=== PATIENT | female | born 1940 | race Caucasian/White ===

== ENCOUNTER 2017-02-24 17:22 | Emergency (ER) | payer MEDICARE, OTHER ==
[~2017-02-24] VITALS: Ht 167.6 cm; Wt 61.2 kg
[~2017-02-24 17:22] MED LIST: AMIT50TA3; AMLO5CAP40 PO; ASPI81TA10; ATE50T PO; CALC500C3 PO; DIPH2.5T73 PO; ESOM40CA39 PO; FENO5TAB PO; FER325T PO; LEVO75TA50 PO; MAGN400T5; MORP100T22; MULT-683 OR; NITR-48 PO; ONDA4TAB5 PO; OXYC10TA44 PO; PANT40TA2 PO; POTA20TA53 PO; PROM25TA5; VITA400T4 PO; ZOLP5TAB5
[2017-02-24 19:44] LABS: Basophils # (auto) 0.1 uL; Basophils % (auto) 0.7 % (0.0-2.0); Eosinophils # (auto) 0.9 uL; Eosinophils % (auto) 6.9 % (0.0-7.0); Hematocrit 40.3 % (36.0-46.0); Hemoglobin 13.6 g/dL (12.2-16.2); Lymphocytes % (auto) 22.2 % (10.0-50.0); Mean Corpuscular Hemoglobin 32.8 pg (28.0-32.0); Mean Corpuscular Hgb Conc. 33.7 g/dL (32.0-36.0); Mean Corpuscular Volume 97.4 fL (80.0-100.0); Mean Platelet Volume 8.5 fL (6.9-10.8); Monocytes # (auto) 1.1 uL; Monocytes % (auto) 8.3 % (0.0-12.0); Neutrophils # (auto) 8.2 uL; Neutrophils % (auto) 61.9 % (37.0-80.0); Nucleated Red Blood Cells % 0.1 %; Platelet Count (auto) 385 10^3/uL (140-450); White Blood Cell 13.4 10^3/uL (4.4-10.8)
[2017-02-24 19:45] LABS: INR 1.02 (0.9-1.15); Partial Thromboplastin Time 30.3 sec (22.64-33.71); Prothrombin Time 11.1 sec (9.37-12.3)
[2017-02-24 19:53] LABS: BUN/Creatinine Ratio 18.8; Bilirubin, Total 0.4 mg/dL (0.2-1.0); Calcium 8.4 mg/dL (8.5-10.1); Potassium 3.8 mmol/L (3.5-5.1); Total Protein 7.8 g/dL (6.4-8.2)
[2017-02-24 20:41] LABS: Urine Bilirubin Negative (Negative); Urine Blood Negative /uL (Negative); Urine Color Yellow (Yellow); Urine Glucose Normal (Normal); Urine Hyaline Cast FEW /lpf (0 - 2); Urine Ketone Negative (Negative); Urine Mucus FEW (None Seen); Urine Nitrite POSITIVE (Negative); Urine RBC <1 /hpf (0 - 4); Urine Squamous Epithelial Cell FEW /hpf (<5); Urine Urobilinogen Normal (Negative); Urine pH 5.5 (5.0-8.0)
[2017-02-24 23:40] VITALS: BP 137/99
== END 2017-02-24 23:41 | disposition home or self-care (01) ==
LOC: EDBD 17:22 → ER 17:22
DX: R04.0 Epistaxis (principal); I11.0 Hypertensive heart disease with heart failure; I50.9 Heart failure, unspecified; E11.9 Type 2 diabetes mellitus without complications; E78.5 Hyperlipidemia, unspecified; I25.2 Old myocardial infarction; Z85.830 Personal history of malignant neoplasm of bone; Z79.899 Other long term (current) drug therapy
CPT/HCPCS: 36415; 80053; 81001; 85025; 85610; 85730; 93005

== ENCOUNTER 2017-06-03 16:45 | Inpatient (IN) | payer MEDICARE, OTHER ==
[~2017-06-03] VITALS: Ht 167.6 cm; Wt 57.7 kg
[~2017-06-03 16:45] MED LIST changes: -AMIT50TA3; +AMIT50TA3 PO; -ASPI81TA10; +ASPI81TA10 PO; -MAGN400T5; +MAGN400T5 PO; -ZOLP5TAB5; +ZOLP5TAB5 PO
[2017-06-03] MEDS ORDERED: ACETAMINOPHEN 325 MG TAB PO ONE ×3 (17:56→18:15)
[2017-06-03 18:26] LABS: Basophils # (auto) 0 uL; Basophils % (auto) 0.3 % (0.0-2.0); Eosinophils # (auto) 0 uL; Eosinophils % (auto) 0.6 % (0.0-7.0); Hematocrit 40.4 % (36.0-46.0); Hemoglobin 12.9 g/dL (12.2-16.2); Lymphocytes # (auto) 0.4 uL; Lymphocytes % (auto) 5.4 % (10.0-50.0); Mean Corpuscular Hemoglobin 31.4 pg (28.0-32.0); Mean Corpuscular Volume 98.3 fL (80.0-100.0); Monocytes # (auto) 0.7 uL; Monocytes % (auto) 9.5 % (0.0-12.0); Neutrophils # (auto) 5.9 uL; Neutrophils % (auto) 84.2 % (37.0-80.0); Nucleated Red Blood Cells % 0.2 %; Platelet Count (auto) 174 10^3/uL (140-450); Red Cell Distribution Width 14.9 % (11.8-14.3)
[2017-06-03 18:44] LABS: Albumin 2.9 g/dL (3.4-5.0); Calcium 7.7 mg/dL (8.5-10.1); Magnesium 1.7 mg/dL (1.6-2.6)
[2017-06-03 18:45] LABS: Lactic Acid w/Reflex 2.7 mmol/L (0.4-2.0)
[2017-06-03 18:46] LABS: Bilirubin, Total 0.4 mg/dL (0.2-1.0); Total Protein 7.4 g/dL (6.4-8.2)
[2017-06-03] MEDS ORDERED: SODIUM CHLORIDE 0.9% 1,000 ML IVB ONE (21:15)
[2017-06-03] MEDS ORDERED: ONDANSETRON HCL 4 MG/2 ML VIAL IV ONE (21:15)
[2017-06-03 21:36] LABS: Amylase 11 U/L (25-115); Lipase 48 U/L (73-393)
[2017-06-03] MEDS ORDERED: NITROGLYCERIN 0.4 MG SL TAB SL PRN (23:45)
[2017-06-03] MEDS ORDERED: MORPHINE SULFATE 4 MG/ML SYR/VIAL IV PRN (23:45)
[2017-06-03] MEDS ORDERED: AZITHROMYCIN 500MG/ 250ML 250 ML IV ONE (23:45)
[2017-06-04] VITALS (8 sets, daily range): BP systolic 80–137; BP diastolic 43–93
[2017-06-04 00:25] LABS: Cholesterol 102 mg/dL (< 200); HDL Cholesterol 26 mg/dL (40-59); LDL Cholesterol 60 mg/dL (< 100); Triglycerides 172 mg/dL (< 150)
[2017-06-04 04:11] LABS: Hematocrit 35.2 % (36.0-46.0); Hemoglobin 11.7 g/dL (12.2-16.2); Mean Corpuscular Hemoglobin 31.9 pg (28.0-32.0); Mean Corpuscular Hgb Conc. 33.3 g/dL (32.0-36.0); Mean Corpuscular Volume 95.8 fL (80.0-100.0); Platelet Count (auto) 133 10^3/uL (140-450); Red Blood Cells 3.68 10^6/uL (4.0-5.20); Red Cell Distribution Width 14.5 % (11.8-14.3); White Blood Cell 4.8 10^3/uL (4.4-10.8)
[2017-06-04 04:13] LABS: Band Neutrophils % (manual) 0; Basophils % (manual) 0 (0.0-2.0); Blast Cells 0; Eosinophils % (manual) 0 (0-7); Metamyelocytes % 0; Myelocytes % 0; Promyelocytes % 0; Reactive Lymphocytes 0
[2017-06-04 04:26] LABS: BUN/Creatinine Ratio 13.3; Calcium 7.2 mg/dL (8.5-10.1); Potassium 3.9 mmol/L (3.5-5.1)
[2017-06-04] MEDS ORDERED: FUROSEMIDE 20 MG/2 ML VIAL IV ONE (05:15)
[2017-06-04] MEDS: LEVOTHYROXINE SODIUM 25 MCG TAB PO SCH (06:14)
[2017-06-04 06:50] LABS: Lymphocytes % (manual) 14 (10.0-50.0); Monocytes % (manual) 17 (0-12)
[2017-06-04 07:22] LABS: Urine Bacteria MOD /hpf (None Seen); Urine Blood Negative /uL (Negative); Urine Mucus FEW (None Seen); Urine Specific Gravity 1.012 (1.001-1.035); Urine WBC 9 /hpf (0 - 5)
[2017-06-04] MEDS: IPRATROPIUM BROM 0.5 MG/2.5ML INH SOL NEB SCH ×3 (08:04→18:34)
[2017-06-04] MEDS: ALBUTEROL SULF 2.5 MG/0.5ML(0.5%) NEB SOLN NEB SCH ×3 (08:04→18:34)
[2017-06-04] MEDS: PANTOPRAZOLE 40 MG TAB PO SCH (08:35)
[2017-06-04] MEDS: ASPirin-EC 81 mg tab PO SCH (08:35)
[2017-06-04] MEDS: ACETAMINOPHEN 500 MG TAB PO PRN (08:36)
[2017-06-04] MEDS: PIPERACILLIN-TAZOB 3.375GM 50 ML IV SCH (18:51)
[2017-06-04] MEDS: ATORVASTATIN 20 MG TAB PO SCH (21:35)
[2017-06-04] MEDS: AMITRIPTYLINE HCL 25 MG TAB PO SCH (21:35)
[2017-06-04] MEDS ORDERED: AZITHROMYCIN 500MG/ 250ML 250 ML IV SCH (22:00)
[2017-06-05] MEDS: ALBUTEROL SULF 2.5 MG/0.5ML(0.5%) NEB SOLN NEB SCH ×3 (00:26→11:15)
[2017-06-05] MEDS: IPRATROPIUM BROM 0.5 MG/2.5ML INH SOL NEB SCH ×4 (00:26→21:01)
[2017-06-05] MEDS: ACETYLCYSTEINE 20%(200MG/ML) SOL 4ML NEB SCH ×2 (00:27→06:01)
[2017-06-05] MEDS: PIPERACILLIN-TAZOB 3.375GM 50 ML IV SCH ×4 (01:11→18:16)
[2017-06-05 05:00] VITALS: BP 126/60
[2017-06-05] MEDS: ONDANSETRON HCL 4 MG/2 ML VIAL IV PRN (05:15)
[2017-06-05] MEDS: LEVOTHYROXINE SODIUM 25 MCG TAB PO SCH (06:24)
[2017-06-05 09:00] VITALS: BP 106/52
[2017-06-05] MEDS ORDERED: cefTRIAXone 1GM/10ml IVPUSH 10 ML IV SCH (09:00)
[2017-06-05] MEDS: PANTOPRAZOLE 40 MG TAB PO SCH (10:47)
[2017-06-05] MEDS: ASPirin-EC 81 mg tab PO SCH (10:47)
[2017-06-05 13:00] VITALS: BP 125/48
[2017-06-05] MEDS: HYDROcodone-ACET 5/325MG TAB PO PRN (14:53)
[2017-06-05] MEDS ORDERED: ADENOSINE 6 MG/2 ML INJ IV ONE (17:15)
[2017-06-05 17:40] VITALS: BP 129/56
[2017-06-05] MEDS ORDERED: AMIODARONE HCL 900 MG in DEXTROSE 500 ML IV SCH (17:43)
[2017-06-05] MEDS ORDERED: AMIODARONE HCL 150 MG in D5W 5% 100 ML IV ONE (17:45)
[2017-06-05] MEDS ORDERED: SODIUM CHLORIDE 0.9% 1,000 ML IV ONE (17:45)
[2017-06-05] MEDS ORDERED: METOPROLOL TARTRATE 1MG/1ML-5ML VIAL IV ONE (18:00)
[2017-06-05] MEDS: SODIUM CHLORIDE 0.9% 1,000 ML IV SCH (18:37)
[2017-06-05 18:45] VITALS: BP 102/45
[2017-06-05] MEDS ORDERED: VANCOMYCIN PER PHARMACY 0 MG IV SCH (18:45)
[2017-06-05] MEDS ORDERED: VANCOMYCIN 1GM/250ML 250 ML IV ONE (18:45)
[2017-06-05 19:24] LABS: Basophils # (auto) 0 uL; Basophils % (auto) 0.4 % (0.0-2.0); Eosinophils # (auto) 0 uL; Hematocrit 40.7 % (36.0-46.0); Hemoglobin 13.4 g/dL (12.2-16.2); Lymphocytes # (auto) 1.1 uL; Lymphocytes % (auto) 28.3 % (10.0-50.0); Mean Corpuscular Hemoglobin 31.8 pg (28.0-32.0); Mean Corpuscular Volume 96.1 fL (80.0-100.0); Monocytes # (auto) 0.6 uL; Monocytes % (auto) 17.3 % (0.0-12.0); Nucleated Red Blood Cells % 0.1 %; Platelet Count (auto) 160 10^3/uL (140-450); Red Blood Cells 4.23 10^6/uL (4.0-5.20); Red Cell Distribution Width 14.7 % (11.8-14.3); White Blood Cell 3.7 10^3/uL (4.4-10.8)
[2017-06-05 19:42] LABS: INR 1.07 (0.9-1.15); Prothrombin Time 11.7 sec (9.37-12.3)
[2017-06-05 19:54] LABS: Albumin 2.7 g/dL (3.4-5.0); BUN/Creatinine Ratio 11.4; Bilirubin, Total 0.4 mg/dL (0.2-1.0); Calcium 7.5 mg/dL (8.5-10.1); Potassium 3.2 mmol/L (3.5-5.1); Total Protein 7.1 g/dL (6.4-8.2)
[2017-06-05] MEDS: VANCOMYCIN 1GM/250ML 250 ML IV SCH (20:32)
[2017-06-05] MEDS: APIXABAN 5 MG TAB PO SCH (20:45)
[2017-06-05] MEDS: AMITRIPTYLINE HCL 25 MG TAB PO SCH (20:45)
[2017-06-05] MEDS: TEMAZEPAM 15 MG CAP PO PRN (20:46)
[2017-06-05] MEDS: ATORVASTATIN 20 MG TAB PO SCH (20:46)
[2017-06-05 20:56] VITALS: BP 90/59
[2017-06-05] MEDS: AMIODARONE HCL 900 MG in DEXTROSE 500 ML IV SCH (23:43)
[2017-06-06] VITALS (7 sets, daily range): BP systolic 92–163; BP diastolic 49–73
[2017-06-06] MEDS: ACETYLCYSTEINE 20%(200MG/ML) SOL 4ML NEB SCH ×4 (00:20→18:40)
[2017-06-06] MEDS: IPRATROPIUM BROM 0.5 MG/2.5ML INH SOL NEB SCH ×4 (00:20→18:40)
[2017-06-06] MEDS: PIPERACILLIN-TAZOB 3.375GM 50 ML IV SCH ×4 (00:55→18:13)
[2017-06-06] MEDS: AMIODARONE HCL 900 MG in DEXTROSE 500 ML IV SCH (01:23)
[2017-06-06] MEDS: SODIUM CHLORIDE 0.9% 1,000 ML IV SCH ×3 (04:44→23:45)
[2017-06-06] MEDS: LEVOTHYROXINE SODIUM 25 MCG TAB PO SCH (04:48)
[2017-06-06 05:50] LABS: Hematocrit 40.5 % (36.0-46.0); Mean Corpuscular Hemoglobin 31.7 pg (28.0-32.0); Mean Corpuscular Hgb Conc. 32.1 g/dL (32.0-36.0); Mean Corpuscular Volume 98.8 fL (80.0-100.0); Platelet Count (auto) 123 10^3/uL (140-450); White Blood Cell 2.5 10^3/uL (4.4-10.8)
[2017-06-06 05:53] LABS: Basophils % (manual) 0 (0.0-2.0); Blast Cells 0; Eosinophils % (manual) 0 (0-7); Metamyelocytes % 0; Myelocytes % 0; Promyelocytes % 0; Reactive Lymphocytes 0
[2017-06-06 06:26] LABS: Albumin 2.5 g/dL (3.4-5.0); BUN/Creatinine Ratio 12.9; Bilirubin, Total 0.4 mg/dL (0.2-1.0); Calcium 7.3 mg/dL (8.5-10.1); Potassium 3.3 mmol/L (3.5-5.1); Total Protein 6.5 g/dL (6.4-8.2)
[2017-06-06 06:47] LABS: Band Neutrophils % (manual) 4; Lymphocytes % (manual) 30 (10.0-50.0); Monocytes % (manual) 18 (0-12)
[2017-06-06] MEDS: ASPirin-EC 81 mg tab PO SCH (11:26)
[2017-06-06] MEDS: APIXABAN 5 MG TAB PO SCH ×2 (11:27→22:00)
[2017-06-06] MEDS: PANTOPRAZOLE 40 MG TAB PO SCH (11:27)
[2017-06-06] MEDS ORDERED: POTASSIUM CHL 20 Meq TABLET PO ONE ×2 (12:00→16:00)
[2017-06-06] MEDS: ACETAMINOPHEN 500 MG TAB PO PRN (12:07)
[2017-06-06] MEDS: LOPERAMIDE HCL 2 MG CAP PO PRN (15:06)
[2017-06-06] MEDS ORDERED: AMIODARONE HCL 200 MG TAB PO ONE (18:00)
[2017-06-06] MEDS ORDERED: FUROSEMIDE 20 MG/2 ML VIAL IV ONE (18:00)
[2017-06-06] MEDS: HYDROcodone-ACET 5/325MG TAB PO PRN (18:30)
[2017-06-06] MEDS: VANCOMYCIN 1GM/250ML 250 ML IV SCH (21:00)
[2017-06-06] MEDS: AMITRIPTYLINE HCL 25 MG TAB PO SCH (22:00)
[2017-06-06] MEDS: ATORVASTATIN 20 MG TAB PO SCH (22:00)
[2017-06-07] VITALS (8 sets, daily range): BP systolic 120–162; BP diastolic 71–99
[2017-06-07] MEDS: ACETYLCYSTEINE 20%(200MG/ML) SOL 4ML NEB SCH ×4 (00:18→18:59)
[2017-06-07] MEDS: IPRATROPIUM BROM 0.5 MG/2.5ML INH SOL NEB SCH ×4 (00:18→18:58)
[2017-06-07] MEDS: MORPHINE SULFATE 4 MG/ML SYR/VIAL IV PRN ×2 (02:34→17:34)
[2017-06-07 05:44] LABS: Basophils # (auto) 0 uL; Basophils % (auto) 0.1 % (0.0-2.0); Eosinophils # (auto) 0 uL; Eosinophils % (auto) 0.4 % (0.0-7.0); Hematocrit 40.8 % (36.0-46.0); Hemoglobin 13.4 g/dL (12.2-16.2); Lymphocytes # (auto) 0.8 uL; Lymphocytes % (auto) 35.8 % (10.0-50.0); Mean Corpuscular Hemoglobin 31.9 pg (28.0-32.0); Mean Corpuscular Hgb Conc. 32.8 g/dL (32.0-36.0); Mean Corpuscular Volume 97.3 fL (80.0-100.0); Monocytes # (auto) 0.4 uL; Monocytes % (auto) 16.9 % (0.0-12.0); Neutrophils # (auto) 1.1 uL; Neutrophils % (auto) 46.8 % (37.0-80.0); Nucleated Red Blood Cells % 0.3 %; Platelet Count (auto) 115 10^3/uL (140-450); Red Blood Cells 4.19 10^6/uL (4.0-5.20); Red Cell Distribution Width 14.8 % (11.8-14.3); White Blood Cell 2.4 10^3/uL (4.4-10.8)
[2017-06-07] MEDS: PIPERACILLIN-TAZOB 3.375GM 50 ML IV SCH ×4 (05:54→17:34)
[2017-06-07 06:00] LABS: BUN/Creatinine Ratio 10.3; Calcium 7.8 mg/dL (8.5-10.1); Potassium 4.3 mmol/L (3.5-5.1)
[2017-06-07] MEDS: LEVOTHYROXINE SODIUM 25 MCG TAB PO SCH (06:55)
[2017-06-07] MEDS: HYDROcodone-ACET 5/325MG TAB PO PRN (07:54)
[2017-06-07] MEDS: SODIUM CHLORIDE 0.9% 1,000 ML IV SCH ×2 (09:45→23:00)
[2017-06-07] MEDS: APIXABAN 5 MG TAB PO SCH ×2 (10:00→21:44)
[2017-06-07] MEDS: ASPirin-EC 81 mg tab PO SCH (10:00)
[2017-06-07] MEDS: PANTOPRAZOLE 40 MG TAB PO SCH (10:00)
[2017-06-07] MEDS ORDERED: ALBUTEROL SULF 2.5 MG/0.5ML(0.5%) NEB SOLN NEB PRN (16:15)
[2017-06-07] MEDS ORDERED: MORPHINE SULF INJ 2 MG/ML SYRINGE 1ML ONE (17:24)
[2017-06-07] MEDS: methylPREDNISolone SOD SUCC 40 MG/ML VL IV SCH (17:33)
[2017-06-07] MEDS ORDERED: AMIODARONE HCL 200 MG TAB PO SCH (18:00)
[2017-06-07] MEDS: ALBUTEROL SULF 2.5 MG/0.5ML(0.5%) NEB SOLN NEB SCH (18:58)
[2017-06-07] MEDS: BUDESONIDE (INHALATION) 0.5 MG/2 ML NEB NEB SCH (18:58)
[2017-06-07] MEDS: AMITRIPTYLINE HCL 25 MG TAB PO SCH (21:43)
[2017-06-07] MEDS: ATORVASTATIN 20 MG TAB PO SCH (21:44)
[2017-06-07] MEDS: TEMAZEPAM 15 MG CAP PO PRN (21:45)
[2017-06-08] VITALS: BP 156/90
[2017-06-08] MEDS: PIPERACILLIN-TAZOB 3.375GM 50 ML IV SCH ×4 (00:14→17:45)
[2017-06-08] MEDS: methylPREDNISolone SOD SUCC 40 MG/ML VL IV SCH ×4 (00:14→17:39)
[2017-06-08] MEDS: NAFCILLIN SOD 1GM 1 GM in SODIUM CHL 0.9% 50 ML IV SCH ×4 (01:15→22:30)
[2017-06-08] MEDS: LORazepam 2MG/ML-1ML VIAL IV PRN (01:32)
[2017-06-08] MEDS ORDERED: AMIODARONE HCL (50 MG/ ML) 3 ML VIAL IV ONE (01:53)
[2017-06-08] MEDS ORDERED: AMIODARONE HCL 900 MG IV ONE (01:53)
[2017-06-08] MEDS ORDERED: AMIODARONE HCL 900 MG in DEXTROSE 500 ML IV SCH (02:15)
[2017-06-08] MEDS ORDERED: AMIODARONE HCL 150 MG in D5W 5% 100 ML IV ONE (02:15)
[2017-06-08] MEDS ORDERED: DIGOXIN (250MCG/ML) 2 ML AMPULE ONE (02:31)
[2017-06-08] MEDS ORDERED: SODIUM BICARBONATE 8.4 % INJ 50ML VIAL IV ONE ×2 (02:39→02:45)
[2017-06-08] MEDS ORDERED: FUROSEMIDE 20 MG/2 ML VIAL ONE (02:39)
[2017-06-08] MEDS ORDERED: FUROSEMIDE 20 MG/2 ML VIAL IV ONE (02:45)
[2017-06-08] MEDS ORDERED: DIGOXIN (250MCG/ML) 2 ML AMPULE IV ONE (02:45)
[2017-06-08] MEDS ORDERED: diphenhdrAMINE HCL 50 MG/1 ML VL ONE (02:52)
[2017-06-08] MEDS ORDERED: diphenhdrAMINE HCL 50 MG/1 ML VL IV ONE (03:00)
[2017-06-08 04:00] VITALS: BP 94/84
[2017-06-08] MEDS: LEVOTHYROXINE SODIUM 25 MCG TAB PO SCH (05:26)
[2017-06-08] MEDS: ALBUTEROL SULF 2.5 MG/0.5ML(0.5%) NEB SOLN NEB SCH ×4 (06:16→19:38)
[2017-06-08] MEDS: ACETYLCYSTEINE 20%(200MG/ML) SOL 4ML NEB SCH ×4 (06:16→19:38)
[2017-06-08] MEDS: IPRATROPIUM BROM 0.5 MG/2.5ML INH SOL NEB SCH ×4 (06:16→19:38)
[2017-06-08 06:54] LABS: Basophils # (auto) 0 uL; Eosinophils # (auto) 0 uL; Hemoglobin 13.9 g/dL (12.2-16.2); Lymphocytes # (auto) 0.3 uL; Monocytes # (auto) 0.1 uL; Neutrophils # (auto) 0.7 uL; Nucleated Red Blood Cells % 0.2 %; Red Cell Distribution Width 14.2 % (11.8-14.3)
[2017-06-08 06:59] LABS: Basophils % (auto) 0.3 % (0.0-2.0); Hematocrit 40.8 % (36.0-46.0); Lymphocytes % (auto) 24.4 % (10.0-50.0); Mean Corpuscular Hemoglobin 32.1 pg (28.0-32.0); Mean Corpuscular Volume 94.3 fL (80.0-100.0); Monocytes % (auto) 9.7 % (0.0-12.0); Neutrophils % (auto) 65.6 % (37.0-80.0); Platelet Count (auto) 114 10^3/uL (140-450); Red Blood Cells 4.33 10^6/uL (4.0-5.20)
[2017-06-08 07:05] LABS: White Blood Cell 1.1 10^3/uL (4.4-10.8)
[2017-06-08 07:17] LABS: BUN/Creatinine Ratio 10.6; Calcium 7.6 mg/dL (8.5-10.1); Potassium 3.3 mmol/L (3.5-5.1); Total Protein 7.8 g/dL (6.4-8.2)
[2017-06-08 07:54] LABS: Bilirubin, Total 0.5 mg/dL (0.2-1.0)
[2017-06-08] MEDS: AMIODARONE HCL 900 MG in DEXTROSE 500 ML IV SCH (08:15)
[2017-06-08] MEDS: BUDESONIDE (INHALATION) 0.5 MG/2 ML NEB NEB SCH ×2 (10:00→19:38)
[2017-06-08] MEDS: HYDROcodone-ACET 5/325MG TAB PO PRN (10:26)
[2017-06-08] MEDS: PANTOPRAZOLE 40 MG TAB PO SCH (10:27)
[2017-06-08] MEDS: APIXABAN 5 MG TAB PO SCH ×2 (10:27→22:00)
[2017-06-08] MEDS: ASPirin-EC 81 mg tab PO SCH (10:27)
[2017-06-08 11:53] VITALS: BP 92/65
[2017-06-08] MEDS ORDERED: MORPHINE SULF INJ 2 MG/ML SYRINGE 1ML IV PRN (13:45)
[2017-06-08 15:50] VITALS: BP 95/64
[2017-06-08] MEDS: MORPHINE SULF INJ 2 MG/ML SYRINGE 1ML IV PRN (17:40)
[2017-06-08 20:00] VITALS: BP 92/60
[2017-06-08] MEDS: AMITRIPTYLINE HCL 25 MG TAB PO SCH (22:00)
[2017-06-08] MEDS: ATORVASTATIN 20 MG TAB PO SCH (22:34)
[2017-06-09] VITALS (7 sets, daily range): BP systolic 93–160; BP diastolic 50–89
[2017-06-09] MEDS: HYDROcodone-ACET 5/325MG TAB PO PRN ×2 (00:09→10:50)
[2017-06-09] MEDS: methylPREDNISolone SOD SUCC 40 MG/ML VL IV SCH ×3 (00:10→12:00)
[2017-06-09] MEDS: TEMAZEPAM 15 MG CAP PO PRN ×2 (00:10→21:09)
[2017-06-09] MEDS: PIPERACILLIN-TAZOB 3.375GM 50 ML IV SCH ×4 (00:10→19:30)
[2017-06-09] MEDS: AMIODARONE HCL 900 MG in DEXTROSE 500 ML IV SCH (04:18)
[2017-06-09] MEDS: NAFCILLIN SOD 1GM 1 GM in SODIUM CHL 0.9% 50 ML IV SCH ×5 (06:10→22:15)
[2017-06-09] MEDS: LEVOTHYROXINE SODIUM 25 MCG TAB PO SCH (06:16)
[2017-06-09] MEDS: IPRATROPIUM BROM 0.5 MG/2.5ML INH SOL NEB SCH ×4 (06:33→18:38)
[2017-06-09] MEDS: ALBUTEROL SULF 2.5 MG/0.5ML(0.5%) NEB SOLN NEB SCH ×4 (06:33→18:38)
[2017-06-09] MEDS: ACETYLCYSTEINE 20%(200MG/ML) SOL 4ML NEB SCH ×4 (06:33→18:39)
[2017-06-09] MEDS: APIXABAN 5 MG TAB PO SCH ×2 (10:36→22:15)
[2017-06-09] MEDS: ASPirin-EC 81 mg tab PO SCH (10:36)
[2017-06-09] MEDS: PANTOPRAZOLE 40 MG TAB PO SCH (10:36)
[2017-06-09] MEDS: BUDESONIDE (INHALATION) 0.5 MG/2 ML NEB NEB SCH ×2 (10:37→21:20)
[2017-06-09] MEDS: FILGRASTIM 300 MCG INJ VIAL SC SCH (10:39)
[2017-06-09] MEDS ORDERED: SOTALOL HCL 80 MG TAB PO ONE (17:30)
[2017-06-09] MEDS: methylPREDNISolone SOD SUCC 125 MG/2 ML VL IV SCH (18:57)
[2017-06-09] MEDS: SODIUM CHLORIDE 0.9% 1,000 ML IV SCH ×3 (21:02→22:10)
[2017-06-09] MEDS: AMITRIPTYLINE HCL 25 MG TAB PO SCH (22:15)
[2017-06-09] MEDS: ATORVASTATIN 20 MG TAB PO SCH (22:15)
[2017-06-09] MEDS: SOTALOL HCL 80 MG TAB PO SCH (22:15)
[2017-06-09] MEDS ORDERED: methylPREDNISolone SOD SUCC 40 MG/ML VL ONE (23:37)
[2017-06-10] VITALS (8 sets, daily range): BP systolic 101–123; BP diastolic 59–77
[2017-06-10] MEDS: NAFCILLIN SOD 1GM 1 GM in SODIUM CHL 0.9% 50 ML IV SCH ×6 (01:34→21:23)
[2017-06-10 05:27] LABS: Basophils # (auto) 0.1 uL; Basophils % (auto) 0.5 % (0.0-2.0); Eosinophils # (auto) 0 uL; Hemoglobin 13.2 g/dL (12.2-16.2); Lymphocytes # (auto) 0.9 uL; Lymphocytes % (auto) 3.3 % (10.0-50.0); Mean Corpuscular Hemoglobin 31.4 pg (28.0-32.0); Mean Corpuscular Hgb Conc. 32.3 g/dL (32.0-36.0); Mean Corpuscular Volume 97.3 fL (80.0-100.0); Monocytes # (auto) 0.8 uL; Neutrophils # (auto) 24.9 uL; Neutrophils % (auto) 93.2 % (37.0-80.0); Platelet Count (auto) 158 10^3/uL (140-450); Red Blood Cells 4.21 10^6/uL (4.0-5.20); Red Cell Distribution Width 14.8 % (11.8-14.3); White Blood Cell 26.7 10^3/uL (4.4-10.8)
[2017-06-10 05:43] LABS: Albumin 2.5 g/dL (3.4-5.0); BUN/Creatinine Ratio 16.7; Bilirubin, Total 0.9 mg/dL (0.2-1.0); Calcium 6.5 mg/dL (8.5-10.1); Total Protein 6.6 g/dL (6.4-8.2)
[2017-06-10 05:49] LABS: Potassium 2.9 mmol/L (3.5-5.1)
[2017-06-10] MEDS: methylPREDNISolone SOD SUCC 125 MG/2 ML VL IV SCH ×5 (06:17→23:22)
[2017-06-10] MEDS: PIPERACILLIN-TAZOB 3.375GM 50 ML IV SCH ×5 (06:17→23:22)
[2017-06-10] MEDS: LEVOTHYROXINE SODIUM 25 MCG TAB PO SCH (06:39)
[2017-06-10] MEDS ORDERED: POTASSIUM CHL 20 Meq TABLET PO ONE (06:45)
[2017-06-10] MEDS: ALBUTEROL SULF 2.5 MG/0.5ML(0.5%) NEB SOLN NEB SCH ×4 (07:00→18:24)
[2017-06-10] MEDS: IPRATROPIUM BROM 0.5 MG/2.5ML INH SOL NEB SCH ×4 (07:00→18:24)
[2017-06-10] MEDS: BUDESONIDE (INHALATION) 0.5 MG/2 ML NEB NEB SCH ×2 (07:00→18:25)
[2017-06-10] MEDS: ACETYLCYSTEINE 20%(200MG/ML) SOL 4ML NEB SCH ×4 (07:01→18:25)
[2017-06-10] MEDS: SODIUM CHLORIDE 0.9% 1,000 ML IV SCH ×2 (10:00→17:45)
[2017-06-10] MEDS: FILGRASTIM 300 MCG INJ VIAL SC SCH (10:00)
[2017-06-10] MEDS: PANTOPRAZOLE 40 MG TAB PO SCH (10:03)
[2017-06-10] MEDS: ASPirin-EC 81 mg tab PO SCH (10:03)
[2017-06-10] MEDS: SOTALOL HCL 80 MG TAB PO SCH ×2 (10:03→21:16)
[2017-06-10] MEDS: APIXABAN 5 MG TAB PO SCH ×2 (10:03→21:22)
[2017-06-10] MEDS: LOPERAMIDE HCL 2 MG CAP PO PRN (13:39)
[2017-06-10] MEDS: ONDANSETRON HCL 4 MG/2 ML VIAL IV PRN (13:39)
[2017-06-10] MEDS ORDERED: POTASSIUM CHLORIDE 40 MEQ, LIDOCAINE 1% (LOCAL ANESTH.) 4 ML in SODIUM CHL 0.9% 100 ML IV ONE (15:00)
[2017-06-10] MEDS: ATORVASTATIN 20 MG TAB PO SCH (21:22)
[2017-06-10] MEDS: AMITRIPTYLINE HCL 25 MG TAB PO SCH (21:22)
[2017-06-11] MEDS: NAFCILLIN SOD 1GM 1 GM in SODIUM CHL 0.9% 50 ML IV SCH ×6 (01:37→22:40)
[2017-06-11] MEDS: MORPHINE SULF INJ 2 MG/ML SYRINGE 1ML IV PRN ×2 (03:03→22:58)
[2017-06-11 04:00] VITALS: BP 130/80
[2017-06-11 05:22] LABS: Basophils # (auto) 0 uL; Basophils % (auto) 0.1 % (0.0-2.0); Eosinophils # (auto) 0 uL; Hematocrit 40.1 % (36.0-46.0); Hemoglobin 13.2 g/dL (12.2-16.2); Lymphocytes % (auto) 5.7 % (10.0-50.0); Mean Corpuscular Hemoglobin 31.4 pg (28.0-32.0); Mean Corpuscular Hgb Conc. 32.9 g/dL (32.0-36.0); Mean Corpuscular Volume 95.4 fL (80.0-100.0); Monocytes # (auto) 0.8 uL; Monocytes % (auto) 4.2 % (0.0-12.0); Neutrophils # (auto) 16.5 uL; Platelet Count (auto) 175 10^3/uL (140-450); Red Cell Distribution Width 14.1 % (11.8-14.3); White Blood Cell 18.3 10^3/uL (4.4-10.8)
[2017-06-11 05:36] LABS: Albumin 2.5 g/dL (3.4-5.0); BUN/Creatinine Ratio 18.3; Bilirubin, Total 0.7 mg/dL (0.2-1.0); Calcium 6.2 mg/dL (8.5-10.1); Total Protein 6.4 g/dL (6.4-8.2)
[2017-06-11 05:41] LABS: Potassium 2.9 mmol/L (3.5-5.1)
[2017-06-11] MEDS: PIPERACILLIN-TAZOB 3.375GM 50 ML IV SCH ×3 (05:43→18:10)
[2017-06-11] MEDS: methylPREDNISolone SOD SUCC 125 MG/2 ML VL IV SCH ×3 (05:43→18:10)
[2017-06-11] MEDS: SODIUM CHLORIDE 0.9% 1,000 ML IV SCH ×3 (06:08→23:45)
[2017-06-11] MEDS: ALBUTEROL SULF 2.5 MG/0.5ML(0.5%) NEB SOLN NEB SCH ×4 (06:17→18:24)
[2017-06-11] MEDS: IPRATROPIUM BROM 0.5 MG/2.5ML INH SOL NEB SCH ×4 (06:17→18:24)
[2017-06-11] MEDS: ACETYLCYSTEINE 20%(200MG/ML) SOL 4ML NEB SCH ×4 (06:17→18:24)
[2017-06-11] MEDS ORDERED: POTASSIUM CHL 20 Meq TABLET PO ONE ×2 (06:45→11:45)
[2017-06-11] MEDS: LEVOTHYROXINE SODIUM 25 MCG TAB PO SCH (07:28)
[2017-06-11 07:30] VITALS: BP 127/92
[2017-06-11] MEDS ORDERED: CALCIUM GLUC 4.65meq/50ml D5AE 50 ML IV ONE (07:30)
[2017-06-11] MEDS: BUDESONIDE (INHALATION) 0.5 MG/2 ML NEB NEB SCH ×2 (09:43→18:28)
[2017-06-11] MEDS: APIXABAN 5 MG TAB PO SCH ×2 (09:53→22:33)
[2017-06-11] MEDS: SOTALOL HCL 80 MG TAB PO SCH ×2 (09:53→22:36)
[2017-06-11] MEDS: PANTOPRAZOLE 40 MG TAB PO SCH (09:53)
[2017-06-11] MEDS: ASPirin-EC 81 mg tab PO SCH (09:54)
[2017-06-11] MEDS: FILGRASTIM 300 MCG INJ VIAL SC SCH (10:00)
[2017-06-11 11:50] VITALS: BP 137/83
[2017-06-11 15:50] VITALS: BP 139/88
[2017-06-11 19:57] VITALS: BP 143/83
[2017-06-11 22:27] VITALS: BP 150/72
[2017-06-11] MEDS: ATORVASTATIN 20 MG TAB PO SCH (22:34)
[2017-06-11] MEDS: AMITRIPTYLINE HCL 25 MG TAB PO SCH (22:56)
[2017-06-12] VITALS: BP 113/69
[2017-06-12] MEDS: methylPREDNISolone SOD SUCC 125 MG/2 ML VL IV SCH ×5 (00:08→23:06)
[2017-06-12] MEDS: PIPERACILLIN-TAZOB 3.375GM 50 ML IV SCH ×5 (00:08→23:02)
[2017-06-12] MEDS: NAFCILLIN SOD 1GM 1 GM in SODIUM CHL 0.9% 50 ML IV SCH ×6 (04:13→21:15)
[2017-06-12 06:22] LABS: Hematocrit 41.6 % (36.0-46.0); Hemoglobin 13.8 g/dL (12.2-16.2); Mean Corpuscular Hemoglobin 31.2 pg (28.0-32.0); Mean Corpuscular Hgb Conc. 33.2 g/dL (32.0-36.0); Platelet Count (auto) 194 10^3/uL (140-450); Red Blood Cells 4.43 10^6/uL (4.0-5.20)
[2017-06-12] MEDS: LEVOTHYROXINE SODIUM 25 MCG TAB PO SCH (06:27)
[2017-06-12 06:40] LABS: Albumin 2.5 g/dL (3.4-5.0); Calcium 6.1 mg/dL (8.5-10.1)
[2017-06-12 06:41] LABS: BUN/Creatinine Ratio 21.6
[2017-06-12 06:44] LABS: Bilirubin, Total 0.8 mg/dL (0.2-1.0); Total Protein 6.4 g/dL (6.4-8.2)
[2017-06-12 06:53] LABS: Band Neutrophils % (manual) 0; Basophils % (manual) 0 (0.0-2.0); Blast Cells 0; Eosinophils % (manual) 0 (0-7); Metamyelocytes % 0; Myelocytes % 0; Promyelocytes % 0; Reactive Lymphocytes 0
[2017-06-12 07:06] LABS: Lymphocytes % (manual) 6 (10.0-50.0); Monocytes % (manual) 8 (0-12)
[2017-06-12 07:14] LABS: Potassium 2.5 mmol/L (3.5-5.1)
[2017-06-12] MEDS: IPRATROPIUM BROM 0.5 MG/2.5ML INH SOL NEB SCH ×4 (07:18→18:46)
[2017-06-12] MEDS: ALBUTEROL SULF 2.5 MG/0.5ML(0.5%) NEB SOLN NEB SCH ×4 (07:18→18:46)
[2017-06-12] MEDS: ACETYLCYSTEINE 20%(200MG/ML) SOL 4ML NEB SCH ×4 (07:19→18:46)
[2017-06-12] MEDS ORDERED: POTASSIUM CHL 20 Meq TABLET PO ONE (07:45)
[2017-06-12] MEDS: MORPHINE SULF INJ 2 MG/ML SYRINGE 1ML IV PRN (08:26)
[2017-06-12] MEDS: HYDROcodone-ACET 5/325MG TAB PO PRN (10:15)
[2017-06-12] MEDS: PANTOPRAZOLE 40 MG TAB PO SCH (10:16)
[2017-06-12] MEDS: ASPirin-EC 81 mg tab PO SCH (10:16)
[2017-06-12] MEDS: APIXABAN 5 MG TAB PO SCH ×2 (10:16→22:06)
[2017-06-12] MEDS: SOTALOL HCL 80 MG TAB PO SCH ×2 (10:16→22:08)
[2017-06-12] MEDS: BUDESONIDE (INHALATION) 0.5 MG/2 ML NEB NEB SCH ×2 (10:31→18:48)
[2017-06-12 12:00] VITALS: BP 154/84
[2017-06-12] MEDS: LORazepam 2MG/ML-1ML VIAL IV PRN (12:26)
[2017-06-12] MEDS: LOPERAMIDE HCL 2 MG CAP PO PRN (14:11)
[2017-06-12 15:57] VITALS: BP 130/80
[2017-06-12] MEDS: SODIUM CHLORIDE 0.9% 1,000 ML IV SCH ×2 (18:07→19:45)
[2017-06-12] MEDS: POTASSIUM CHL 10% (20 MEQ/15ML) 15ml ORAL SOLN PO SCH (18:10)
[2017-06-12 18:46] VITALS: BP 135/87
[2017-06-12 20:00] VITALS: BP 123/75
[2017-06-12] MEDS: AMITRIPTYLINE HCL 25 MG TAB PO SCH (22:06)
[2017-06-12] MEDS: ATORVASTATIN 20 MG TAB PO SCH (22:09)
[2017-06-12 22:11] VITALS: BP 129/82
[2017-06-13] VITALS: BP 134/78
[2017-06-13] MEDS: MORPHINE SULF INJ 2 MG/ML SYRINGE 1ML IV PRN (01:09)
[2017-06-13] MEDS: NAFCILLIN SOD 1GM 1 GM in SODIUM CHL 0.9% 50 ML IV SCH ×6 (02:19→21:22)
[2017-06-13 03:15] VITALS: BP 127/76
[2017-06-13 04:09] VITALS: BP 134/78
[2017-06-13 05:19] LABS: Hematocrit 42.9 % (36.0-46.0); Hemoglobin 14.3 g/dL (12.2-16.2); Mean Corpuscular Hemoglobin 31.3 pg (28.0-32.0); Mean Corpuscular Hgb Conc. 33.3 g/dL (32.0-36.0); Platelet Count (auto) 238 10^3/uL (140-450); Red Blood Cells 4.57 10^6/uL (4.0-5.20); Red Cell Distribution Width 14.2 % (11.8-14.3); White Blood Cell 13.5 10^3/uL (4.4-10.8)
[2017-06-13 05:27] LABS: Band Neutrophils % (manual) 0; Basophils % (manual) 0 (0.0-2.0); Blast Cells 0; Eosinophils % (manual) 0 (0-7); Myelocytes % 0; Promyelocytes % 0; Reactive Lymphocytes 0
[2017-06-13 05:39] LABS: Albumin 2.4 g/dL (3.4-5.0); BUN/Creatinine Ratio 19.7; Potassium 3.2 mmol/L (3.5-5.1)
[2017-06-13 05:42] LABS: Bilirubin, Total 0.6 mg/dL (0.2-1.0); Total Protein 6.6 g/dL (6.4-8.2)
[2017-06-13] MEDS: SODIUM CHLORIDE 0.9% 1,000 ML IV SCH (05:45)
[2017-06-13 06:03] LABS: Lymphocytes % (manual) 11 (10.0-50.0); Metamyelocytes % 3; Monocytes % (manual) 6 (0-12)
[2017-06-13] MEDS: methylPREDNISolone SOD SUCC 125 MG/2 ML VL IV SCH ×4 (06:07→23:45)
[2017-06-13] MEDS: PIPERACILLIN-TAZOB 3.375GM 50 ML IV SCH ×4 (06:08→23:46)
[2017-06-13] MEDS: ALBUTEROL SULF 2.5 MG/0.5ML(0.5%) NEB SOLN NEB SCH ×4 (06:46→18:23)
[2017-06-13] MEDS: ACETYLCYSTEINE 20%(200MG/ML) SOL 4ML NEB SCH ×4 (06:46→18:24)
[2017-06-13] MEDS: IPRATROPIUM BROM 0.5 MG/2.5ML INH SOL NEB SCH ×4 (06:46→18:23)
[2017-06-13] MEDS: BUDESONIDE (INHALATION) 0.5 MG/2 ML NEB NEB SCH ×2 (06:46→18:23)
[2017-06-13] MEDS ORDERED: POTASSIUM CHL 20 Meq TABLET PO ONE ×2 (06:58→07:00)
[2017-06-13] MEDS: LEVOTHYROXINE SODIUM 25 MCG TAB PO SCH (07:03)
[2017-06-13] MEDS: APIXABAN 5 MG TAB PO SCH ×2 (10:00→21:18)
[2017-06-13] MEDS: PANTOPRAZOLE 40 MG TAB PO SCH (10:00)
[2017-06-13] MEDS: SOTALOL HCL 80 MG TAB PO SCH ×2 (10:02→21:18)
[2017-06-13] MEDS: POTASSIUM CHL 10% (20 MEQ/15ML) 15ml ORAL SOLN PO SCH (10:02)
[2017-06-13] MEDS: ASPirin-EC 81 mg tab PO SCH (10:02)
[2017-06-13 11:58] VITALS: BP 124/96
[2017-06-13] MEDS: SOD CHL 0.9%/ KCL 40MEQ 1,000 ML IV SCH (12:59)
[2017-06-13] MEDS: LOPERAMIDE HCL 2 MG CAP PO PRN (13:46)
[2017-06-13 15:53] VITALS: BP 117/73
[2017-06-13 19:45] VITALS: BP 130/84
[2017-06-13] MEDS: ATORVASTATIN 20 MG TAB PO SCH (21:18)
[2017-06-13] MEDS: AMITRIPTYLINE HCL 25 MG TAB PO SCH (21:18)
[2017-06-14] MEDS: SOD CHL 0.9%/ KCL 40MEQ 1,000 ML IV SCH ×2 (00:05→19:01)
[2017-06-14 00:15] VITALS: BP 135/72
[2017-06-14] MEDS: NAFCILLIN SOD 1GM 1 GM in SODIUM CHL 0.9% 50 ML IV SCH ×6 (02:41→21:13)
[2017-06-14] MEDS: methylPREDNISolone SOD SUCC 125 MG/2 ML VL IV SCH ×3 (05:13→17:57)
[2017-06-14] MEDS: ACETYLCYSTEINE 20%(200MG/ML) SOL 4ML NEB SCH ×4 (06:00→19:07)
[2017-06-14] MEDS: ALBUTEROL SULF 2.5 MG/0.5ML(0.5%) NEB SOLN NEB SCH ×4 (06:00→19:06)
[2017-06-14] MEDS: IPRATROPIUM BROM 0.5 MG/2.5ML INH SOL NEB SCH ×4 (06:00→19:06)
[2017-06-14] MEDS: PIPERACILLIN-TAZOB 3.375GM 50 ML IV SCH ×3 (06:16→17:29)
[2017-06-14] MEDS: LEVOTHYROXINE SODIUM 25 MCG TAB PO SCH (06:16)
[2017-06-14] MEDS: BUDESONIDE (INHALATION) 0.5 MG/2 ML NEB NEB SCH ×2 (10:08→19:06)
[2017-06-14] MEDS: SOTALOL HCL 80 MG TAB PO SCH ×2 (10:45→21:14)
[2017-06-14] MEDS: APIXABAN 5 MG TAB PO SCH ×2 (10:46→21:13)
[2017-06-14] MEDS: PANTOPRAZOLE 40 MG TAB PO SCH (10:46)
[2017-06-14] MEDS: ASPirin-EC 81 mg tab PO SCH (10:46)
[2017-06-14] MEDS: POTASSIUM CHL 10% (20 MEQ/15ML) 15ml ORAL SOLN PO SCH (10:47)
[2017-06-14 12:14] VITALS: BP 144/74
[2017-06-14] MEDS: MORPHINE SULF INJ 2 MG/ML SYRINGE 1ML IV PRN (12:31)
[2017-06-14 15:47] VITALS: BP 132/74
[2017-06-14 20:05] VITALS: BP 129/74
[2017-06-14] MEDS: ATORVASTATIN 20 MG TAB PO SCH (21:14)
[2017-06-14] MEDS: AMITRIPTYLINE HCL 25 MG TAB PO SCH (21:14)
[2017-06-15] MEDS: methylPREDNISolone SOD SUCC 125 MG/2 ML VL IV SCH ×5 (00:40→23:40)
[2017-06-15] MEDS: PIPERACILLIN-TAZOB 3.375GM 50 ML IV SCH ×5 (00:40→23:37)
[2017-06-15] MEDS: NAFCILLIN SOD 1GM 1 GM in SODIUM CHL 0.9% 50 ML IV SCH ×6 (01:54→21:47)
[2017-06-15] MEDS: SOD CHL 0.9%/ KCL 40MEQ 1,000 ML IV SCH ×2 (02:45→15:08)
[2017-06-15 06:04] LABS: Basophils # (auto) 0 uL; Basophils % (auto) 0.1 % (0.0-2.0); Eosinophils # (auto) 0 uL; Eosinophils % (auto) 0.1 % (0.0-7.0); Hematocrit 45.6 % (36.0-46.0); Hemoglobin 14.8 g/dL (12.2-16.2); Lymphocytes # (auto) 1.1 uL; Lymphocytes % (auto) 10.8 % (10.0-50.0); Mean Corpuscular Hemoglobin 32.1 pg (28.0-32.0); Mean Corpuscular Hgb Conc. 32.4 g/dL (32.0-36.0); Mean Corpuscular Volume 99.3 fL (80.0-100.0); Monocytes % (auto) 9.7 % (0.0-12.0); Neutrophils # (auto) 7.8 uL; Neutrophils % (auto) 79.3 % (37.0-80.0); Nucleated Red Blood Cells % 0.1 %; Platelet Count (auto) 173 10^3/uL (140-450); Red Blood Cells 4.59 10^6/uL (4.0-5.20); Red Cell Distribution Width 14.5 % (11.8-14.3); White Blood Cell 9.9 10^3/uL (4.4-10.8)
[2017-06-15] MEDS: IPRATROPIUM BROM 0.5 MG/2.5ML INH SOL NEB SCH ×4 (06:35→18:47)
[2017-06-15] MEDS: ACETYLCYSTEINE 20%(200MG/ML) SOL 4ML NEB SCH ×4 (06:36→18:47)
[2017-06-15] MEDS: ALBUTEROL SULF 2.5 MG/0.5ML(0.5%) NEB SOLN NEB SCH ×4 (06:36→18:47)
[2017-06-15 06:39] LABS: BUN/Creatinine Ratio 21.4; Calcium 6.3 mg/dL (8.5-10.1)
[2017-06-15 06:40] LABS: Albumin 2.6 g/dL (3.4-5.0); Bilirubin, Total 0.9 mg/dL (0.2-1.0); Total Protein 6.7 g/dL (6.4-8.2)
[2017-06-15] MEDS: LEVOTHYROXINE SODIUM 25 MCG TAB PO SCH ×2 (07:00→08:32)
[2017-06-15] MEDS ORDERED: cloNIDine HCL 0.1 MG TAB ONE (09:13)
[2017-06-15] MEDS ORDERED: cloNIDine HCL 0.1 MG TAB PO ONE (09:15)
[2017-06-15] MEDS: PANTOPRAZOLE 40 MG TAB PO SCH (09:22)
[2017-06-15] MEDS: APIXABAN 5 MG TAB PO SCH ×2 (09:22→21:48)
[2017-06-15] MEDS: ASPirin-EC 81 mg tab PO SCH (09:23)
[2017-06-15] MEDS: POTASSIUM CHL 10% (20 MEQ/15ML) 15ml ORAL SOLN PO SCH ×3 (09:24→15:00)
[2017-06-15] MEDS: SOTALOL HCL 80 MG TAB PO SCH ×2 (10:00→21:48)
[2017-06-15] MEDS: BUDESONIDE (INHALATION) 0.5 MG/2 ML NEB NEB SCH ×2 (10:35→18:47)
[2017-06-15 11:55] VITALS: BP 169/72
[2017-06-15 13:00] VITALS: BP 136/78
[2017-06-15 15:46] VITALS: BP 125/72
[2017-06-15 18:51] LABS: Calcium 6.3 mg/dL (8.5-10.1); Potassium 3.1 mmol/L (3.5-5.1)
[2017-06-15 19:56] VITALS: BP 121/80
[2017-06-15 21:04] VITALS: BP 121/80
[2017-06-15] MEDS: ATORVASTATIN 20 MG TAB PO SCH (21:47)
[2017-06-15] MEDS: AMITRIPTYLINE HCL 25 MG TAB PO SCH (21:48)
[2017-06-16] MEDS: NAFCILLIN SOD 1GM 1 GM in SODIUM CHL 0.9% 50 ML IV SCH ×6 (01:54→22:03)
[2017-06-16] MEDS: HYDROcodone-ACET 5/325MG TAB PO PRN (03:43)
[2017-06-16] MEDS: SOD CHL 0.9%/ KCL 40MEQ 1,000 ML IV SCH (05:25)
[2017-06-16] MEDS: IPRATROPIUM BROM 0.5 MG/2.5ML INH SOL NEB SCH ×2 (06:00→18:58)
[2017-06-16] MEDS: methylPREDNISolone SOD SUCC 125 MG/2 ML VL IV SCH ×3 (06:28→18:28)
[2017-06-16] MEDS: LEVOTHYROXINE SODIUM 25 MCG TAB PO SCH (06:28)
[2017-06-16] MEDS: PIPERACILLIN-TAZOB 3.375GM 50 ML IV SCH ×3 (06:28→18:28)
[2017-06-16] MEDS: BUDESONIDE (INHALATION) 0.5 MG/2 ML NEB NEB SCH ×2 (07:29→18:59)
[2017-06-16] MEDS: ACETYLCYSTEINE 20%(200MG/ML) SOL 4ML NEB SCH ×4 (07:29→18:58)
[2017-06-16] MEDS: ALBUTEROL SULF 2.5 MG/0.5ML(0.5%) NEB SOLN NEB SCH ×3 (07:29→18:58)
[2017-06-16 07:49] LABS: Hematocrit 42.6 % (36.0-46.0); Hemoglobin 14.4 g/dL (12.2-16.2); Mean Corpuscular Hemoglobin 31.6 pg (28.0-32.0); Mean Corpuscular Hgb Conc. 33.7 g/dL (32.0-36.0); Mean Corpuscular Volume 93.8 fL (80.0-100.0); Platelet Count (auto) 206 10^3/uL (140-450); Red Blood Cells 4.54 10^6/uL (4.0-5.20); Red Cell Distribution Width 13.7 % (11.8-14.3); White Blood Cell 11.5 10^3/uL (4.4-10.8)
[2017-06-16 07:59] LABS: Band Neutrophils % (manual) 0; Basophils % (manual) 0 (0.0-2.0); Blast Cells 0; Eosinophils % (manual) 0 (0-7); Metamyelocytes % 0; Myelocytes % 0; Promyelocytes % 0; Reactive Lymphocytes 0
[2017-06-16 08:00] VITALS: BP 144/79
[2017-06-16 08:09] LABS: Albumin 2.5 g/dL (3.4-5.0); Calcium 6.4 mg/dL (8.5-10.1); Magnesium 1.4 mg/dL (1.6-2.6); Total Protein 6.3 g/dL (6.4-8.2)
[2017-06-16 08:17] LABS: Potassium 2.8 mmol/L (3.5-5.1)
[2017-06-16 09:35] LABS: Lymphocytes % (manual) 14 (10.0-50.0); Monocytes % (manual) 9 (0-12)
[2017-06-16] MEDS: APIXABAN 5 MG TAB PO SCH ×2 (09:52→22:04)
[2017-06-16] MEDS: PANTOPRAZOLE 40 MG TAB PO SCH (09:52)
[2017-06-16] MEDS: POTASSIUM CHL 10% (20 MEQ/15ML) 15ml ORAL SOLN PO SCH (09:52)
[2017-06-16] MEDS: ASPirin-EC 81 mg tab PO SCH (09:52)
[2017-06-16] MEDS: SOTALOL HCL 80 MG TAB PO SCH ×2 (09:53→22:04)
[2017-06-16 11:53] VITALS: BP 134/75
[2017-06-16] MEDS ORDERED: POTASSIUM CHLORIDE 80 MEQ, LIDOCAINE 1% (LOCAL ANESTH.) 6 ML in SODIUM CHL 0.9% 500 ML IV ONE (12:00)
[2017-06-16] MEDS ORDERED: POTASSIUM CHL 20 Meq TABLET PO ONE ×4 (12:49→20:00)
[2017-06-16 15:46] VITALS: BP 128/83
[2017-06-16] MEDS ORDERED: MEGESTROL ACET 400MG/10ML ORAL SUSP PO ONE (16:00)
[2017-06-16 20:00] VITALS: BP 139/84
[2017-06-16 20:30] VITALS: BP 128/73
[2017-06-16] MEDS: ATORVASTATIN 20 MG TAB PO SCH (22:04)
[2017-06-16] MEDS: AMITRIPTYLINE HCL 25 MG TAB PO SCH (22:04)
[2017-06-17] VITALS: BP 139/84
[2017-06-17] MEDS: methylPREDNISolone SOD SUCC 125 MG/2 ML VL IV SCH ×3 (00:24→11:30)
[2017-06-17] MEDS: PIPERACILLIN-TAZOB 3.375GM 50 ML IV SCH ×3 (00:24→11:30)
[2017-06-17] MEDS: NAFCILLIN SOD 1GM 1 GM in SODIUM CHL 0.9% 50 ML IV SCH ×4 (02:00→14:00)
[2017-06-17 04:00] VITALS: BP 158/68
[2017-06-17] MEDS: ALBUTEROL SULF 2.5 MG/0.5ML(0.5%) NEB SOLN NEB SCH ×3 (06:19→13:24)
[2017-06-17] MEDS: IPRATROPIUM BROM 0.5 MG/2.5ML INH SOL NEB SCH ×3 (06:19→13:24)
[2017-06-17] MEDS: ACETYLCYSTEINE 20%(200MG/ML) SOL 4ML NEB SCH ×3 (06:20→13:24)
[2017-06-17] MEDS: LEVOTHYROXINE SODIUM 25 MCG TAB PO SCH (06:32)
[2017-06-17 08:00] VITALS: BP 164/90
[2017-06-17] MEDS: PANTOPRAZOLE 40 MG TAB PO SCH (09:12)
[2017-06-17] MEDS: POTASSIUM CHL 10% (20 MEQ/15ML) 15ml ORAL SOLN PO SCH (09:13)
[2017-06-17] MEDS: APIXABAN 5 MG TAB PO SCH (09:13)
[2017-06-17] MEDS: SOTALOL HCL 80 MG TAB PO SCH (09:14)
[2017-06-17] MEDS: ASPirin-EC 81 mg tab PO SCH (09:14)
[2017-06-17] MEDS ORDERED: MEGESTROL ACET 400MG/10ML ORAL SUSP PO SCH (10:00)
[2017-06-17] MEDS: BUDESONIDE (INHALATION) 0.5 MG/2 ML NEB NEB SCH (10:22)
[2017-06-17 11:08] LABS: Hematocrit 42.5 % (36.0-46.0); Hemoglobin 14.3 g/dL (12.2-16.2); Mean Corpuscular Hemoglobin 31.8 pg (28.0-32.0); Mean Corpuscular Hgb Conc. 33.6 g/dL (32.0-36.0); Mean Corpuscular Volume 94.5 fL (80.0-100.0); Platelet Count (auto) 214 10^3/uL (140-450); Red Blood Cells 4.49 10^6/uL (4.0-5.20); Red Cell Distribution Width 14.1 % (11.8-14.3); White Blood Cell 10.9 10^3/uL (4.4-10.8)
[2017-06-17 11:10] LABS: Band Neutrophils % (manual) 0; Basophils % (manual) 0 (0.0-2.0); Blast Cells 0; Eosinophils % (manual) 0 (0-7); Metamyelocytes % 0; Myelocytes % 0; Promyelocytes % 0; Reactive Lymphocytes 0
[2017-06-17 11:37] LABS: Albumin 2.5 g/dL (3.4-5.0); Bilirubin, Total 0.9 mg/dL (0.2-1.0); Calcium 6.8 mg/dL (8.5-10.1); Potassium 3.1 mmol/L (3.5-5.1); Total Protein 6.4 g/dL (6.4-8.2)
[2017-06-17 11:43] LABS: Lymphocytes % (manual) 12 (10.0-50.0); Monocytes % (manual) 5 (0-12)
[2017-06-17 12:00] VITALS: BP 152/81
[2017-06-17] MEDS ORDERED: POTASSIUM CHL 10% (20 MEQ/15ML) 15ml ORAL SOLN PO ONE (14:15)
[2017-06-17 16:00] VITALS: BP 132/86
== END 2017-06-17 17:35 | DRG 871 ==
LOC: EDBD 16:45 → ER 16:45 → TELE 16:46 → TELE-CENTR 06-04 01:47 → DOU IN ICU 06-05 18:45
PROVIDERS: ADMIT Nurse Practitioner Family; ATTEND Family Medicine
PROC: 5A09357 Assistance with Respiratory Ventilation, Less than 24 Consecutive Hours, Continuous Positive Airway Pressure (ICD-10-PCS; principal; 2017-06-06)
PROC: 5A09357 Assistance with Respiratory Ventilation, Less than 24 Consecutive Hours, Continuous Positive Airway Pressure (ICD-10-PCS; 2017-06-07)
PROC: 5A09357 Assistance with Respiratory Ventilation, Less than 24 Consecutive Hours, Continuous Positive Airway Pressure (ICD-10-PCS; 2017-06-08)
DX: A41.89 Other specified sepsis (principal); J96.21 Acute and chronic respiratory failure with hypoxia; J15.1 Pneumonia due to Pseudomonas; J15.212 Pneumonia due to Methicillin resistant Staphylococcus aureus; I13.0 Hypertensive heart and chronic kidney disease with heart failure and stage 1 through stage 4 chronic kidney disease, or unspecified chronic kidney disease; N17.9 Acute kidney failure, unspecified; I48.91 Unspecified atrial fibrillation; I50.9 Heart failure, unspecified; J44.0 Chronic obstructive pulmonary disease with (acute) lower respiratory infection; N39.0 Urinary tract infection, site not specified; J44.1 Chronic obstructive pulmonary disease with (acute) exacerbation; A41.01 Sepsis due to Methicillin susceptible Staphylococcus aureus; Z99.81 Dependence on supplemental oxygen; N18.3 Chronic kidney disease, stage 3 (moderate); E03.9 Hypothyroidism, unspecified; E78.5 Hyperlipidemia, unspecified; K57.30 Diverticulosis of large intestine without perforation or abscess without bleeding; G47.00 Insomnia, unspecified; Z60.2 Problems related to living alone; E87.6 Hypokalemia; I25.10 Atherosclerotic heart disease of native coronary artery without angina pectoris; I67.9 Cerebrovascular disease, unspecified; K21.9 Gastro-esophageal reflux disease without esophagitis; Z79.899 Other long term (current) drug therapy; Z80.52 Family history of malignant neoplasm of bladder; Z82.0 Family history of epilepsy and other diseases of the nervous system; Z82.49 Family history of ischemic heart disease and other diseases of the circulatory system; Z83.3 Family history of diabetes mellitus; Z85.830 Personal history of malignant neoplasm of bone; Z90.49 Acquired absence of other specified parts of digestive tract
CPT/HCPCS: 36415; 36600; 71010; 71045; 74176; 80048; 80053; 80061; 81001; 82150; 82805; 83605; 83690; 83735; 83880; 84443; 84484; 85007; 85025; 85027; 85379; 85610; 86141; 87040; 87070; 87077; 87186; 87205; 87493; 93005; 93306; 93970; 94640; 94660; 94761; 96360; A4615; J0153; J0610; J1442; J2001; J2405; J2543; J7060

== ENCOUNTER 2018-01-16 16:15 | Emergency (ER) | payer MEDICARE, OTHER ==
[~2018-01-16] VITALS: Ht 165.1 cm; Wt 64.9 kg
[2018-01-16 17:18] LABS: Basophils # (auto) 0.1 uL; Basophils % (auto) 0.8 % (0.0-2.0); Eosinophils # (auto) 0.2 uL; Eosinophils % (auto) 1.3 % (0.0-7.0); Hemoglobin 14.9 g/dL (12.2-16.2); Lymphocytes # (auto) 1.8 uL; Lymphocytes % (auto) 13.1 % (10.0-50.0); Mean Corpuscular Hemoglobin 32.9 pg (28.0-32.0); Mean Corpuscular Hgb Conc. 33.1 g/dL (32.0-36.0); Mean Corpuscular Volume 99.3 fL (80.0-100.0); Monocytes # (auto) 0.8 uL; Monocytes % (auto) 5.7 % (0.0-12.0); Neutrophils # (auto) 11.1 uL; Neutrophils % (auto) 79.1 % (37.0-80.0); Nucleated Red Blood Cells % 0.1 %; Platelet Count (auto) 287 10^3/uL (140-450); Red Blood Cells 4.53 10^6/uL (4.0-5.20); Red Cell Distribution Width 13.7 % (11.8-14.3)
[2018-01-16 17:33] LABS: INR 1.01 (0.9-1.15); Partial Thromboplastin Time 27.8 sec (23.78-33.04); Prothrombin Time 10.8 sec (9.27-12.13)
[2018-01-16 17:39] LABS: Albumin 3.4 g/dL (3.4-5.0); BUN/Creatinine Ratio 13.3; Bilirubin, Total 0.3 mg/dL (0.2-1.0); Calcium 8.9 mg/dL (8.5-10.1); Potassium 4.1 mmol/L (3.5-5.1); Total Protein 7.8 g/dL (6.4-8.2)
[2018-01-17 05:22] VITALS: BP 112/61
== END 2018-01-17 04:10 | disposition home or self-care (01) ==
LOC: EDBD 16:15 → ER 16:19
DX: R04.0 Epistaxis (principal); J44.9 Chronic obstructive pulmonary disease, unspecified; E78.5 Hyperlipidemia, unspecified; I25.2 Old myocardial infarction; I11.0 Hypertensive heart disease with heart failure; I50.9 Heart failure, unspecified; Z98.61 Coronary angioplasty status; Z79.82 Long term (current) use of aspirin; Z79.899 Other long term (current) drug therapy
CPT/HCPCS: 36415; 80053; 85025; 85610; 85730

== ENCOUNTER 2019-06-26 13:56 | Emergency (ER) | payer MEDICARE, OTHER ==
[2019-06-26 13:56] VITALS: BP 0/0
[~2019-06-26 13:56] MED LIST changes: +MAGN400T40 PO; -MAGN400T5 PO; -MORP100T22; +MORP1TAB15; -NITR-48 PO; +NITR100C44 PO; +ONDA-144 PO; -ONDA4TAB5 PO; +POTA-220 PO; -POTA20TA53 PO
[2019-06-26] MEDS ORDERED: CALCIUM CHLOR(10%) 100MG/ML 10ML SYRINGE IV ONE (13:57)
[2019-06-26] MEDS ORDERED: SODIUM BICARBONATE 8.4% INJ 50ML SYRINGE IV ONE (13:57)
[2019-06-26] MEDS ORDERED: EPINEPHrine HCL 1 MG/10 ML SYRG IV ONE (13:57)
[2019-06-26] MEDS ORDERED: SODIUM BICARBONATE 8.4% INJ 50ML SYRINGE ONE (14:00)
== END 2019-06-27 00:04 | disposition expired ==
LOC: EDBD 13:56 → ER 13:56
DX: I46.9 Cardiac arrest, cause unspecified (principal); I11.0 Hypertensive heart disease with heart failure; I50.9 Heart failure, unspecified; J44.9 Chronic obstructive pulmonary disease, unspecified; E78.5 Hyperlipidemia, unspecified; I25.2 Old myocardial infarction; Z98.61 Coronary angioplasty status; Z87.440 Personal history of urinary (tract) infections; Z79.899 Other long term (current) drug therapy
CPT/HCPCS: 82962; 92950; 99285; J0171